=== PATIENT | female | born 1985 | race Caucasian/White ===

== ENCOUNTER 2016-03-27 12:43 | Outpatient (CLI) | payer OTHER | END 2016-03-27 23:00 | LOC: LAB SRH 12:43 | DX: Z01.818 Encounter for other preprocedural examination (principal); N93.9 Abnormal uterine and vaginal bleeding, unspecified | CPT/HCPCS: 90001; 90004; 90047; 90074; 90155; 90197; 90364; 91004; 92863; 95059 ==

== ENCOUNTER 2016-03-29 08:29 | Day surgery (SDC) | payer OTHER ==
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
--- NOTE | 2016-03-29 13:20 | Provider's Discharge Care Plan ---
Problem, Goal, Plan Problem List 1. Post-operative pain Goals: Improve disease control Instructions: Follow up as needed
--- NOTE | 2016-03-29 13:20 | Provider's Discharge Care Plan ---
Problem, Goal, Plan Problem List 1. Post-operative pain Goals: Improve disease control Instructions: Follow up as needed
[2016-03-29] MEDS ORDERED: OXYCODONE/ACETA1 TA1 PO (13:21)
--- NOTE | 2016-03-29 14:12 | OPERATIVE REPORT ---
DATE OF SURGERY: 03/29/2016 SURGEON: Dutch Chin MD ANALYST MICROBIOLOGY LAB: Dr. Jacques PREOPERATIVE DIAGNOSES: 1. Pelvic pain 2. Abnormal uterine bleeding 3. Previous tubal ligation by history POSTOPERATIVE DIAGNOSES: 1. Pelvic pain 2. Abnormal uterine bleeding 3. Previous tubal ligation by history 4. Pelvic congestion syndrome, extreme set of vascularity throughout the pelvis , not significant for surgical procedure PROCEDURE PERFORMED: 1. Four-puncture subtotal supracervical hysterectomy by morcellation along with bilateral salpingectomy ANESTHESIA: Davina, WAREHOUSE DELIVERY DRIVER. General endotracheal. 15 mL of 0.5 bupivacaine and 1: 200,000 epinephrine. COMPLICATIONS: None. CONDITION: Good. ESTIMATED BLOOD LOSS: Less than 10 mL. FLUIDS: See anesthesia. No blood. DRAINS: See anesthesia. IMPLANTS/GRAFTS: None. PATHOLOGY SPECIMEN: Supracervical hysterectomy and BS by morcellation. See 8 pictures. SURGICAL FINDINGS: See 8 pictures. Findings: Normal anatomy other than extreme vascularity consistent with pelvic congestion syndrome. SURGICAL TECHNIQUE: The patient was prepped and draped in the usual fashion. A time-out was performed, with the right procedure, right patient, right time and right place. Four puncture sites were made with a scalpel, and the trocar, initially 11 mm, was placed directly without the Veress needle, due to the ------- trocar. Insufflation was performed. The 15 mL of lidocaine was placed subcutaneously and the other three 5 mm ports were placed under direct visualization; see pictures. The salpinx was divided from the ovaries bilaterally. The patient had a cornual procedure done with the Essure or Mahnaz, so there was no obvious cauterization of the tubes. This was dissected through the broad ligament, and dissection down through the tendon transverse cervical ligaments, and then dissection to the center. Specimen was isolated and pushed off to the side. Hemostasis was obtained. A 15 mm morcellator was then applied to the left port. After extension and under direct visualization, the fragments of the uterus were removed through the 15 mm port. Irrigation was performed. Hemostasis was meticulous. The 3 lateral lower sites were removed under direct visualization, then the 2 trocars allowed for gas removal without removing the trocar and the scope and the trocar was removed. A [id number] was placed in the 10 and 15 mm port sites, the subumbilical and right lateral. Band-Aids were placed after this. The patient tolerated the procedure well. Sponge, needle, tape and instrument count was correct x2. The patient tolerated the procedure well and went to the recovery room in good condition. The patient was being discharged home with 20 Percocet with oxycodone with 325 acetaminophen. Discharge instructions were given. The patient is to follow up in 1 week.
--- NOTE | 2016-03-29 14:12 | OPERATIVE REPORT ---
DATE OF SURGERY: 03/29/2016 SURGEON: Dutch Chin MD GRIPPER ATTACHER: Dr. Jacques PREOPERATIVE DIAGNOSES: 1. Pelvic pain 2. Abnormal uterine bleeding 3. Previous tubal ligation by history POSTOPERATIVE DIAGNOSES: 1. Pelvic pain 2. Abnormal uterine bleeding 3. Previous tubal ligation by history 4. Pelvic congestion syndrome, extreme set of vascularity throughout the pelvis , not significant for surgical procedure PROCEDURE PERFORMED: 1. Four-puncture subtotal supracervical hysterectomy by morcellation along with bilateral salpingectomy ANESTHESIA: Davina, BED BUG EXTERMINATOR. General endotracheal. 15 mL of 0.5 bupivacaine and 1: 200,000 epinephrine. COMPLICATIONS: None. CONDITION: Good. ESTIMATED BLOOD LOSS: Less than 10 mL. FLUIDS: See anesthesia. No blood. DRAINS: See anesthesia. IMPLANTS/GRAFTS: None. PATHOLOGY SPECIMEN: Supracervical hysterectomy and BS by morcellation. See 8 pictures. SURGICAL FINDINGS: See 8 pictures. Findings: Normal anatomy other than extreme vascularity consistent with pelvic congestion syndrome. SURGICAL TECHNIQUE: The patient was prepped and draped in the usual fashion. A time-out was performed, with the right procedure, right patient, right time and right place. Four puncture sites were made with a scalpel, and the trocar, initially 11 mm, was placed directly without the Veress needle, due to the ------- trocar. Insufflation was performed. The 15 mL of lidocaine was placed subcutaneously and the other three 5 mm ports were placed under direct visualization; see pictures. The salpinx was divided from the ovaries bilaterally. The patient had a cornual procedure done with the Essure or Mahnaz, so there was no obvious cauterization of the tubes. This was dissected through the broad ligament, and dissection down through the tendon transverse cervical ligaments, and then dissection to the center. Specimen was isolated and pushed off to the side. Hemostasis was obtained. A 15 mm morcellator was then applied to the left port. After extension and under direct visualization, the fragments of the uterus were removed through the 15 mm port. Irrigation was performed. Hemostasis was meticulous. The 3 lateral lower sites were removed under direct visualization, then the 2 trocars allowed for gas removal without removing the trocar and the scope and the trocar was removed. A [id number]-ci-ksgue was placed in the 10 and 15 mm port sites, the subumbilical and right lateral. Band-Aids were placed after this. The patient tolerated the procedure well. Sponge, needle, tape and instrument count was correct x2. The patient tolerated the procedure well and went to the recovery room in good condition. The patient was being discharged home with 20 Percocet with oxycodone with 325 acetaminophen. Discharge instructions were given. The patient is to follow up in 1 week.
== END 2016-03-29 15:35 | disposition home or self-care (01) ==
LOC: OR SRH 08:29 → SCU SRH 08:31
PROVIDERS: Obstetrics & Gynecology
PROC: 0UT74ZZ Resection of Bilateral Fallopian Tubes, Percutaneous Endoscopic Approach (ICD-10-PCS; principal; 2016-03-29 10:30)
PROC: 0UT94ZZ Resection of Uterus, Percutaneous Endoscopic Approach (ICD-10-PCS; principal; 2016-03-29 10:30)
DX: N93.9 Abnormal uterine and vaginal bleeding, unspecified (principal); R10.2 Pelvic and perineal pain; N94.89 Other specified conditions associated with female genital organs and menstrual cycle; Z98.51 Tubal ligation status; Z72.0 Tobacco use
CPT/HCPCS: 29240; 50002; 60001; 70002; 80102; 80124; 80182; 80212; 80248; 82669; 82794; 82897; 83587; 83718; 83982; 84038; 85420; 90001; 90074; 90155; 91004